=== PATIENT | female | born 1950 | race Caucasian/White ===

== ENCOUNTER 2018-06-24 16:22 | Emergency (ER) | payer OTHER ==
[~2018-06-24] VITALS: Ht 165.1 cm; Wt 86.6 kg
[~2018-06-24 16:22] MED LIST: AMLODIPINE BESYL5 MG; COZAAR25 MG; SYNTHROID88 MCG
== END 2018-06-24 18:55 | disposition home or self-care (01) ==
LOC: ER 16:22
DX: M76.891 Other specified enthesopathies of right lower limb, excluding foot (principal)

== ENCOUNTER 2019-06-17 08:56 | Emergency (ER) | payer OTHER ==
[~2019-06-17] VITALS: Ht 162.6 cm; Wt 86.2 kg
== END 2019-06-17 12:58 | disposition home or self-care (01) ==
LOC: ER 08:56
DX: S29.011A Strain of muscle and tendon of front wall of thorax, initial encounter (principal); V49.9XXA Car occupant (driver) (passenger) injured in unspecified traffic accident, initial encounter; Y93.89 Activity, other specified; Y92.488 Other paved roadways as the place of occurrence of the external cause; Y99.8 Other external cause status

== ENCOUNTER 2021-11-23 12:21 | Emergency (ER) | payer OTHER ==
[~2021-11-23] VITALS: Ht 165.1 cm; Wt 82.6 kg
[2021-11-23] MEDS ORDERED: LOSARTAN-HCTZ1 EAC1 PO (12:48)
[2021-11-23] MEDS ORDERED: AMLODIPINE BESY10 MG PO (12:49)
[2021-11-23] MEDS ORDERED: SYNTHROID100 MCG PO (12:49)
== END 2021-11-23 18:21 | disposition home or self-care (01) ==
LOC: ER 12:21
DX: S89.91XA Unspecified injury of right lower leg, initial encounter (principal); X58.XXXA Exposure to other specified factors, initial encounter; Y93.9 Activity, unspecified; Y92.9 Unspecified place or not applicable; Y99.9 Unspecified external cause status; Z88.6 Allergy status to analgesic agent; I10 Essential (primary) hypertension